=== PATIENT | female | born 1940 | race Caucasian/White ===

== ENCOUNTER 2020-06-02 12:48 | Outpatient (REF) | payer MEDICARE, SELFPAY ==
[2020-06-02 14:48] LABS: MANUAL DIFF FLAG NO
[2020-06-02 15:03] LABS: Basophils Percent Auto 0.3 % (0-2); Eosinophils Percent Auto 0.5 % (0-4); Hematocrit 38.2 % (37-47); Hemoglobin 12.8 g/dl (12.0-16.0); Imm Gran Abs Auto 0.01 X10*3/uL (0.00-0.03); Imm Gran Pct Auto 0.2 % (0.0-0.4); Lymphocytes Absolute Auto 1.4 X10*3/uL (1.2-4.9); Lymphocytes Percent Auto 23.8 % (20-40); Mean Corpuscular HGB Conc 33.5 g/dl (31.0-35.0); Mean Corpuscular Hemoglobin 32.6 pg (27.0-33.0); Mean Corpuscular Volume 97.2 fL (80-98); Mean Platelet Volume 11.3 fL (9.4-12.3); Monocytes Absolute Auto 0.5 X10*3/uL (0.1-1.2); Monocytes Percent Auto 8.2 % (2-11); Neutrophils Absolute Auto 3.9 X10*3/uL (2.0-8.3); Platelet Count 183 X10*3/uL (160-400); Red Blood Count 3.93 X10*6/uL (4.20-5.50); White Blood Count 5.8 X10*3/uL (4.8-10.8)
[2020-06-02 15:06] LABS: Estimated Average Glucose 126 mg/dL
[2020-06-02 15:08] LABS: Alanine Aminotransferase 21 U/L (0-31); Albumin Level 4.1 g/dL (3.5-5.0); Alkaline Phosphatase 62 U/L (39-117); Anion Gap 13 (12-20); Aspartate Amino Transferase 48 U/L (5-31); Bilirubin Total 0.6 mg/dL (0.0-1.0); Blood Urea Nitrogen 16 mg/dL (9-16); Calcium 9.3 mg/dL (8.4-10.2); Carbon Dioxide 27 mmol/L (22-29); Chloride 104 mmol/L (96-108); Cholesterol 196 mg/dL; Estimated Glomerular Filt Rate > 60; Glucose Fasting 118 mg/dL (60-99); HDL Cholesterol 56 mg/dL; LDL Cholesterol Calculated 128 mg/dl; Potassium 4.8 mmol/l (3.3-5.1); Sodium 139 mmol/L (135-145); Total Protein 6.8 g/dL (6.5-8.0); Triglycerides 60 mg/dL
[2020-06-02 15:34] LABS: Vitamin D 25-OH Total 25.9 ng/mL (>30)
== END 2020-06-02 12:49 | disposition home or self-care (01) ==
LOC: HO.LAB 12:48
PROVIDERS: PCP Internal Medicine; Visit Provider Internal Medicine
DX: I10 Essential (primary) hypertension (principal); R73.03 Prediabetes; E55.9 Vitamin D deficiency, unspecified; E78.00 Pure hypercholesterolemia, unspecified
CPT/HCPCS: 36415; 80053; 80061; 82306; 83036; 85025

== ENCOUNTER 2020-10-06 14:35 | Outpatient (REF) | payer MEDICARE, SELFPAY ==
[2020-10-06 16:01] LABS: Estimated Average Glucose 131 mg/dL; Hemoglobin A1c % 6.2 %
[2020-10-06 16:14] LABS: Anion Gap 12 (12-20); Blood Urea Nitrogen 17 mg/dL (9-16); Calcium 8.8 mg/dL (8.4-10.2); Carbon Dioxide 26 mmol/L (22-29); Chloride 104 mmol/L (96-108); Estimated Glomerular Filt Rate > 60; Glucose Random 102 mg/dL (60-115); Potassium 4.3 mmol/L (3.3-5.1); Sodium 138 mmol/L (135-145)
[2020-10-06 16:38] LABS: Vitamin D 25-OH Total 29.6 ng/mL (>30)
== END 2020-10-06 14:36 | disposition home or self-care (01) ==
LOC: HO.LAB 14:35
PROVIDERS: PCP Internal Medicine; Visit Provider Internal Medicine
DX: I10 Essential (primary) hypertension (principal); R73.03 Prediabetes; E55.9 Vitamin D deficiency, unspecified
CPT/HCPCS: 36415; 80048; 82306; 83036

== ENCOUNTER 2021-01-06 10:39 | Outpatient (REF) | payer MEDICARE, SELFPAY ==
--- NOTE | ~2021-01-06 | MM_ITS ---
EXAMINATION: MM SCREENING DIGITAL BREAST TOMOSYNTHESIS, BILATERAL CLINICAL INFORMATION: Screening. Asymptomatic. The lifetime risk of breast cancer based on the Tyrer-Cuzick Model is 2.7%. COMPARISON: Mammography: January 15, 2019 and studies dating back to April 13, 2009 TECHNIQUE: Digital breast tomosynthesis is performed in both the craniocaudal and mediolateral oblique views along with computer-aided detection (CAD). Synthesized 2D images are generated from the tomosynthesis. FINDINGS: There are scattered areas of fibroglandular density (ACR BI-RADS breast composition Category b). There are no significant masses, abnormal calcifications, or other abnormalities. MM/MM tomosynthesis screening BI IMPRESSION: There are no significant changes from prior study. ASSESSMENT: BI-RADS BI-RADS 1 RECOMMENDATION: Routine annual mammography screening. This patient's information was entered into a reminder system with a target due date for their next mammogram.
== END 2021-01-06 10:40 | disposition home or self-care (01) ==
LOC: HO.MAMMO 10:39
PROVIDERS: Visit Provider Internal Medicine
DX: Z12.31 Encounter for screening mammogram for malignant neoplasm of breast (principal)
CPT/HCPCS: 77063; 77067

== ENCOUNTER 2021-08-15 13:27 | Outpatient (REF) | payer MEDICARE, SELFPAY ==
--- NOTE | ~2021-08-15 | XR_ITS ---
EXAMINATION: XR HIP, RIGHT CLINICAL INFORMATION: Right hip pain. Rule out degenerative changes. COMPARISON: None TECHNIQUE: Two views of the right hip. FINDINGS: Visualized portion of the proximal right femur demonstrate no fracture. Femoral head is well-seated within the acetabulum. Severely decreased femoral acetabular joint space with some sclerotic and likely mild erosive changes of the femoral acetabular joint space. Prominent osteophyte off the superolateral acetabular margin in addition to another prominent osteophyte off the superolateral femoral head/neck junction. XR/XR hip RT min 2V IMPRESSION: Severe degenerative changes of the right hip.
--- NOTE | ~2021-08-15 | XR_ITS ---
EXAMINATION: XR LUMBOSACRAL SPINE CLINICAL INFORMATION: L/S, right hip pain, rule out DJD COMPARISON: None TECHNIQUE: Three views of the lumbosacral spine. FINDINGS: Vertebral body heights are maintained. There is hypertrophic facet arthropathy throughout the lumbar spine and loss of intervertebral disc space most notably at T11-T12,L2-L3, and L4-L5. There is grade 1 anterolisthesis of L4 on L5 and L5 on S1. There are partially visualized degenerative changes of the right hip. XR/XR lumbar spine 2-3V IMPRESSION: Multilevel degenerative change and facet arthropathy of the thoracolumbar spine with grade 1 anterolisthesis L4 on L5 and L5-S1. No acute fracture or malalignment.
== END 2021-08-15 13:28 | disposition home or self-care (01) ==
LOC: HO.XRAY 13:27
PROVIDERS: PCP Internal Medicine; Visit Provider Chiropractor
DX: M25.551 Pain in right hip (principal); M54.50 Low back pain, unspecified
CPT/HCPCS: 72100; 73502

== ENCOUNTER 2021-09-22 12:22 | Outpatient (REF) | payer MEDICARE, SELFPAY ==
[2021-09-22 12:40] LABS: MANUAL DIFF FLAG NO
[2021-09-22 13:04] LABS: Basophils Percent Auto 0.7 % (0-2); Eosinophils Absolute Auto 0.1 X10*3/uL (0.0-0.4); Eosinophils Percent Auto 2.4 % (0-4); Hematocrit 37.9 % (37.0-47.0); Hemoglobin 12.7 g/dl (12.0-16.0); Imm Gran Abs Auto 0.01 X10*3/uL (0.00-0.03); Imm Gran Pct Auto 0.2 % (0.0-0.4); Lymphocytes Absolute Auto 1.3 X10*3/uL (1.2-4.9); Lymphocytes Percent Auto 30.6 % (20-40); Mean Corpuscular HGB Conc 33.5 g/dl (31.0-35.0); Mean Corpuscular Volume 95.5 fL (80.0-98.0); Mean Platelet Volume 11.1 fL (9.4-12.3); Monocytes Absolute Auto 0.4 X10*3/uL (0.1-1.2); Monocytes Percent Auto 9.4 % (2-11); Neutrophils Absolute Auto 2.4 x10*3/uL (2.0-8.3); Neutrophils Percent Auto 56.7 % (45-73); Platelet Count 187 X10*3/uL (160-400); Red Blood Count 3.97 X10*6/uL (4.20-5.50); Red Cell Distribution Width 11.9 % (11.0-16.0); White Blood Count 4.3 X10*3/uL (4.8-10.8)
[2021-09-22 13:20] LABS: Estimated Average Glucose 134 mg/dL; Hemoglobin A1c % 6.3 %
[2021-09-22 13:31] LABS: Alanine Aminotransferase 22 U/L (0-31); Albumin Level 3.9 g/dL (3.5-5.0); Alkaline Phosphatase 69 U/L (39-117); Anion Gap 10 (12-20); Aspartate Amino Transferase 45 U/L (5-31); Bilirubin Total 0.5 mg/dL (0.0-1.0); Blood Urea Nitrogen 13 mg/dL (9-16); Calcium 9.3 mg/dL (8.4-10.2); Carbon Dioxide 28 mmol/L (22-29); Chloride 104 mmol/L (96-108); Cholesterol 187 mg/dL; Estimated Glomerular Filt Rate > 60; Glucose Fasting 126 mg/dL (60-99); HDL Cholesterol 51 mg/dL; Potassium 4.4 mmol/L (3.3-5.1); Sodium 138 mmol/L (135-145); Total Protein 6.7 g/dL (6.5-8.0)
[2021-09-22 13:32] LABS: Creatinine Urine 62.39 mg/dL
[2021-09-22 13:36] LABS: LDL Cholesterol Calculated 125 mg/dl; Triglycerides 56 mg/dL
[2021-09-22 14:09] LABS: Vitamin D 25-OH Total 27.4 ng/mL (>30)
== END 2021-09-22 12:23 | disposition home or self-care (01) ==
LOC: HO.LAB 12:22
PROVIDERS: PCP Internal Medicine; Visit Provider Internal Medicine
DX: E78.00 Pure hypercholesterolemia, unspecified (principal); I10 Essential (primary) hypertension; K21.9 Gastro-esophageal reflux disease without esophagitis; R73.03 Prediabetes; E55.9 Vitamin D deficiency, unspecified
CPT/HCPCS: 36415; 80053; 80061; 82043; 82306; 83036; 85025

== ENCOUNTER 2022-01-05 10:07 | Outpatient (REF) | payer MEDICARE, SELFPAY ==
[2022-01-05 11:09] LABS: Estimated Average Glucose 131 mg/dL; Hemoglobin A1c % 6.2 %
[2022-01-05 11:26] LABS: Anion Gap 11 (12-20); Blood Urea Nitrogen 14 mg/dL (9-16); Carbon Dioxide 26 mmol/L (22-29); Chloride 107 mmol/L (96-108); Estimated Glomerular Filt Rate > 60; Glucose Random 129 mg/dL (60-115); Sodium 139 mmol/L (135-145)
== END 2022-01-05 10:08 | disposition home or self-care (01) ==
LOC: HO.LAB 10:07
PROVIDERS: PCP Internal Medicine; Visit Provider Internal Medicine
DX: R73.03 Prediabetes (principal); I10 Essential (primary) hypertension
CPT/HCPCS: 36415; 80048; 83036

== ENCOUNTER 2022-07-21 14:49 | Outpatient (REF) | payer MEDICARE, SELFPAY ==
[2022-07-21 15:08] LABS: MANUAL DIFF FLAG NO
[2022-07-21 17:33] LABS: Basophils Percent Auto 0.7 % (0-2); Eosinophils Absolute Auto 0.2 X10*3/uL (0.0-0.4); Eosinophils Percent Auto 3.9 % (0-4); Hematocrit 34.8 % (37.0-47.0); Hemoglobin 11.9 g/dl (12.0-16.0); Imm Gran Abs Auto 0.01 X10*3/uL (0.00-0.03); Imm Gran Pct Auto 0.2 % (0.0-0.4); Lymphocytes Absolute Auto 1.6 X10*3/uL (1.2-4.9); Lymphocytes Percent Auto 34.9 % (20-40); Mean Corpuscular HGB Conc 34.2 g/dl (31.0-35.0); Mean Corpuscular Hemoglobin 31.6 pg (27.0-33.0); Mean Corpuscular Volume 92.6 fL (80.0-98.0); Mean Platelet Volume 11.6 fL (9.4-12.3); Monocytes Absolute Auto 0.5 X10*3/uL (0.1-1.2); Monocytes Percent Auto 10.6 % (2-11); Neutrophils Absolute Auto 2.3 x10*3/uL (2.0-8.3); Neutrophils Percent Auto 49.7 % (45-73); Platelet Count 201 X10*3/uL (160-400); Red Blood Count 3.76 X10*6/uL (4.20-5.50); Red Cell Distribution Width 12.9 % (11.0-16.0); White Blood Count 4.6 X10*3/uL (4.8-10.8)
[2022-07-21 17:46] LABS: Alanine Aminotransferase 17 U/L (0-31); Albumin Level 3.8 g/dL (3.5-5.0); Alkaline Phosphatase 78 U/L (39-117); Anion Gap 13 (12-20); Aspartate Amino Transferase 41 U/L (5-31); Bilirubin Total 0.6 mg/dL (0.0-1.0); Blood Urea Nitrogen 15 mg/dL (9-16); Calcium 8.8 mg/dL (8.4-10.2); Carbon Dioxide 24 mmol/L (22-29); Chloride 105 mmol/L (96-108); Cholesterol 186 mg/dL; Estimated Glomerular Filt Rate > 60; Glucose Fasting 101 mg/dL (60-99); HDL Cholesterol 51 mg/dL; LDL Cholesterol Calculated 123 mg/dl; Potassium 4.5 mmol/L (3.3-5.1); Sodium 137 mmol/L (135-145); Total Protein 6.4 g/dL (6.5-8.0); Triglycerides 63 mg/dL
== END 2022-07-21 14:50 | disposition home or self-care (01) ==
LOC: HO.LAB 14:49
PROVIDERS: PCP Internal Medicine; Visit Provider Internal Medicine
DX: I10 Essential (primary) hypertension (principal); E78.00 Pure hypercholesterolemia, unspecified; R73.03 Prediabetes
CPT/HCPCS: 36415; 80053; 80061; 85025

== ENCOUNTER 2022-11-01 14:27 | Outpatient (REF) | payer MEDICARE, SELFPAY ==
[2022-11-01 14:46] LABS: MANUAL DIFF FLAG NO
[2022-11-01 15:57] LABS: Appearance Urine Clear; Color Urine Yellow; Glucose Urine UA Negative (Negative); Leukocyte Esterase Urine Small (1+) (Negative); Nitrite Urine Negative (Negative); PH 5.5 (5.0-9.0); UMIC TRIGGER UA YES; Urine Blood Negative (Negative); Urine Ketones Negative (Negative); Urine Protein Negative (Neg-Trace)
[2022-11-01 16:02] LABS: Basophils Percent Auto 0.8 % (0-2); Eosinophils Absolute Auto 0.2 X10*3/uL (0.0-0.4); Eosinophils Percent Auto 3.8 % (0-4); Hematocrit 35.2 % (37.0-47.0); Imm Gran Abs Auto 0.01 X10*3/uL (0.00-0.03); Imm Gran Pct Auto 0.2 % (0.0-0.4); Lymphocytes Absolute Auto 1.7 X10*3/uL (1.2-4.9); Lymphocytes Percent Auto 32.1 % (20-40); Mean Corpuscular HGB Conc 34.1 g/dl (31.0-35.0); Mean Corpuscular Hemoglobin 31.6 pg (27.0-33.0); Mean Corpuscular Volume 92.6 fL (80.0-98.0); Mean Platelet Volume 11.2 fL (9.4-12.3); Monocytes Absolute Auto 0.5 X10*3/uL (0.1-1.2); Monocytes Percent Auto 9.8 % (2-11); Neutrophils Absolute Auto 2.8 x10*3/uL (2.0-8.3); Neutrophils Percent Auto 53.3 % (45-73); Platelet Count 173 X10*3/uL (160-400); Red Cell Distribution Width 12.8 % (11.0-16.0); White Blood Count 5.2 X10*3/uL (4.8-10.8)
[2022-11-01 16:13] LABS: Estimated Average Glucose 126 mg/dL
[2022-11-01 16:35] LABS: Bacteria Urine None Seen (None Seen); Hyaline Casts Urine 0-2 /LPF (0-2); RBC Urine 0-2 /HPF (0-2); Squamous Epithelial Cell Urine 0-2 /HPF (0-2); WBC Urine 0-5 /HPF (0-5)
[2022-11-01 16:38] LABS: Creatinine Urine 83.48 mg/dL; Microalbum/Creatinine Ratio Ur 7.1 ug/mg cr
[2022-11-01 16:45] LABS: Alanine Aminotransferase 21 U/L (0-31); Albumin Level 3.6 g/dL (3.5-5.0); Alkaline Phosphatase 77 U/L (39-117); Anion Gap 12 (12-20); Aspartate Amino Transferase 44 U/L (5-31); Bilirubin Total 0.6 mg/dL (0.0-1.0); Blood Urea Nitrogen 17 mg/dL (9-16); Calcium 8.9 mg/dL (8.4-10.2); Carbon Dioxide 24 mmol/L (22-29); Chloride 107 mmol/L (96-108); Cholesterol 180 mg/dL; Estimated Glomerular Filt Rate > 60; Glucose Fasting 99 mg/dL (60-99); HDL Cholesterol 54 mg/dL; LDL Cholesterol Calculated 117 mg/dl; Potassium 4.4 mmol/L (3.3-5.1); Sodium 139 mmol/L (135-145); Total Protein 6.2 g/dL (6.5-8.0); Triglycerides 45 mg/dL
== END 2022-11-01 14:28 | disposition home or self-care (01) ==
LOC: HO.LAB 14:27
PROVIDERS: PCP Internal Medicine; Visit Provider Internal Medicine
DX: Z00.00 Encounter for general adult medical examination without abnormal findings (principal); E55.9 Vitamin D deficiency, unspecified; R73.03 Prediabetes; I10 Essential (primary) hypertension; E78.00 Pure hypercholesterolemia, unspecified
CPT/HCPCS: 36415; 80053; 80061; 81001; 82043; 82306; 83036; 85025

== ENCOUNTER 2023-07-26 12:02 | Outpatient (REF) | payer MEDICARE, SELFPAY ==
[2023-07-26 12:39] LABS: MANUAL DIFF FLAG NO
[2023-07-26 14:05] LABS: Basophils Percent Auto 0.7 % (0-2); Eosinophils Absolute Auto 0.2 X10*3/uL (0.0-0.4); Eosinophils Percent Auto 3.9 % (0-4); Hematocrit 26.5 % (37.0-47.0); Hemoglobin 7.9 g/dl (12.0-16.0); Imm Gran Abs Auto 0.01 X10*3/uL (0.00-0.03); Imm Gran Pct Auto 0.2 % (0.0-0.4); Lymphocytes Absolute Auto 1.1 X10*3/uL (1.2-4.9); Lymphocytes Percent Auto 24.4 % (20-40); Mean Corpuscular HGB Conc 29.8 g/dl (31.0-35.0); Mean Corpuscular Hemoglobin 22.6 pg (27.0-33.0); Mean Corpuscular Volume 75.7 fL (80.0-98.0); Mean Platelet Volume 10.1 fL (9.4-12.3); Monocytes Absolute Auto 0.7 X10*3/uL (0.1-1.2); Monocytes Percent Auto 14.6 % (2-11); Neutrophils Absolute Auto 2.6 x10*3/uL (2.0-8.3); Neutrophils Percent Auto 56.2 % (45-73); Platelet Count 252 X10*3/uL (160-400); Red Cell Distribution Width 20.5 % (11.0-16.0); White Blood Count 4.6 X10*3/uL (4.8-10.8)
[2023-07-26 14:39] LABS: Alanine Aminotransferase 17 U/L (0-31); Albumin Level 3.7 g/dL (3.5-5.0); Alkaline Phosphatase 80 U/L (39-117); Anion Gap 10 (12-20); Aspartate Amino Transferase 50 U/L (5-31); Bilirubin Total 0.4 mg/dL (0.0-1.0); Blood Urea Nitrogen 18 mg/dL (9-16); Calcium 9.2 mg/dL (8.4-10.2); Carbon Dioxide 25 mmol/L (22-29); Chloride 108 mmol/L (96-108); Cholesterol 178 mg/dL (<200); Estimated Glomerular Filt Rate > 60; Glucose Random 118 mg/dL (60-115); HDL Cholesterol 60 mg/dL (>40); LDL Cholesterol Calculated 109 mg/dL (<100); Potassium 4.3 mmol/L (3.3-5.1); Sodium 139 mmol/L (135-145); Total Protein 6.8 g/dL (6.5-8.0); Triglycerides 47 mg/dL (<150)
[2023-07-26 14:57] LABS: Vitamin D 25-OH Total 30.3 ng/mL (>30)
== END 2023-07-26 12:03 | disposition home or self-care (01) ==
LOC: HO.LAB 12:02
PROVIDERS: PCP Internal Medicine; Visit Provider Internal Medicine
DX: I10 Essential (primary) hypertension (principal); E78.00 Pure hypercholesterolemia, unspecified; E55.9 Vitamin D deficiency, unspecified
CPT/HCPCS: 36415; 80053; 80061; 82306; 85025

== ENCOUNTER 2023-07-27 13:35 | Outpatient (REF) | payer MEDICARE, SELFPAY ==
[2023-07-27 13:47] LABS: MANUAL DIFF FLAG NO
[2023-07-27 13:54] LABS: Basophils Percent Auto 0.6 % (0-2); Eosinophils Absolute Auto 0.2 X10*3/uL (0.0-0.4); Eosinophils Percent Auto 3.4 % (0-4); Hematocrit 25.9 % (37.0-47.0); Hemoglobin 7.8 g/dl (12.0-16.0); Imm Gran Abs Auto 0.01 X10*3/uL (0.00-0.03); Imm Gran Pct Auto 0.2 % (0.0-0.4); Immature Retic Fraction 23.1 % (3.0-15.9); Lymphocytes Absolute Auto 1.2 X10*3/uL (1.2-4.9); Lymphocytes Percent Auto 21.9 % (20-40); Mean Corpuscular HGB Conc 30.1 g/dl (31.0-35.0); Mean Corpuscular Hemoglobin 23.1 pg (27.0-33.0); Mean Corpuscular Volume 76.6 fL (80.0-98.0); Monocytes Absolute Auto 0.8 X10*3/uL (0.1-1.2); Monocytes Percent Auto 14.4 % (2-11); Neutrophils Absolute Auto 3.2 x10*3/uL (2.0-8.3); Neutrophils Percent Auto 59.5 % (45-73); Platelet Count 255 X10*3/uL (160-400); Red Blood Count 3.38 X10*6/uL (4.20-5.50); Red Cell Distribution Width 20.1 % (11.0-16.0); Retic HGB Equivalent 22.6 pg (30.0-35.0); Reticulocyte Percent 1.4 % (0.5-1.8); Reticulocytes Absolute 0.048 X10*6/uL (0.026-0.095); White Blood Count 5.4 X10*3/uL (4.8-10.8)
[2023-07-27 14:25] LABS: Iron 15 mcg/dL (30-160); Percent Iron Saturation 5 % (15-50); Total Iron Binding Capacity 324 mcg/dL (228-428); Unsaturated Iron Binding 309 ug/dL
[2023-07-27 14:39] LABS: Ferritin 11 ng/mL (10-250)
== END 2023-07-27 13:36 | disposition home or self-care (01) ==
LOC: HO.LAB 13:35
PROVIDERS: PCP Internal Medicine; Visit Provider Internal Medicine
DX: D64.9 Anemia, unspecified (principal)
CPT/HCPCS: 36415; 82728; 83540; 85025; 85045

== ENCOUNTER 2023-10-19 15:15 | Outpatient (REF) | payer MEDICARE, SELFPAY ==
[2023-10-19 15:26] LABS: MANUAL DIFF FLAG NO
[2023-10-19 15:40] LABS: Basophils Percent Auto 0.5 % (0-2); Eosinophils Absolute Auto 0.3 X10*3/uL (0.0-0.4); Hematocrit 34.1 % (37.0-47.0); Hemoglobin 11.1 g/dl (12.0-16.0); Imm Gran Abs Auto 0.02 X10*3/uL (0.00-0.03); Imm Gran Pct Auto 0.3 % (0.0-0.4); Lymphocytes Absolute Auto 1.6 X10*3/uL (1.2-4.9); Lymphocytes Percent Auto 27.8 % (20-40); Mean Corpuscular HGB Conc 32.6 g/dl (31.0-35.0); Mean Corpuscular Hemoglobin 29.4 pg (27.0-33.0); Mean Corpuscular Volume 90.5 fL (80.0-98.0); Monocytes Absolute Auto 0.7 X10*3/uL (0.1-1.2); Monocytes Percent Auto 11.3 % (2-11); Neutrophils Absolute Auto 3.2 x10*3/uL (2.0-8.3); Neutrophils Percent Auto 55.1 % (45-73); Platelet Count 203 X10*3/uL (160-400); Red Blood Count 3.77 X10*6/uL (4.20-5.50); Red Cell Distribution Width 17.7 % (11.0-16.0); White Blood Count 5.8 X10*3/uL (4.8-10.8)
[2023-10-19 16:12] LABS: Anion Gap 7 (12-20); Blood Urea Nitrogen 17 mg/dL (9-16); Calcium 8.6 mg/dL (8.4-10.2); Carbon Dioxide 29 mmol/L (22-29); Chloride 108 mmol/L (96-108); Estimated Glomerular Filt Rate > 60; Glucose Random 90 mg/dL (60-115); Iron 38 mcg/dL (30-160); Percent Iron Saturation 14 % (15-50); Potassium 4.3 mmol/L (3.3-5.1); Sodium 140 mmol/L (135-145); Total Iron Binding Capacity 269 mcg/dL (228-428); Unsaturated Iron Binding 231 ug/dL
[2023-10-19 16:43] LABS: Vitamin B12 366 pg/mL (200-900)
== END 2023-10-19 15:16 | disposition home or self-care (01) ==
LOC: HO.LAB 15:15
PROVIDERS: PCP Internal Medicine; Visit Provider Internal Medicine
DX: D64.9 Anemia, unspecified (principal); I10 Essential (primary) hypertension
CPT/HCPCS: 36415; 80048; 82607; 83540; 85025

== ENCOUNTER 2024-03-20 14:13 | Outpatient (REF) | payer MEDICARE, SELFPAY ==
[2024-03-20 15:02] LABS: Basophils Absolute Auto 0.1 X10*3/uL (0.0-0.2); Basophils Percent Auto 0.7 % (0-2); Eosinophils Absolute Auto 0.3 X10*3/uL (0.0-0.4); Hematocrit 32.2 % (37.0-47.0); Hemoglobin 10.8 g/dl (12.0-16.0); Imm Gran Abs Auto 0.02 X10*3/uL (0.00-0.03); Imm Gran Pct Auto 0.3 % (0.0-0.4); Lymphocytes Absolute Auto 1.5 X10*3/uL (1.2-4.9); Lymphocytes Percent Auto 22.2 % (20-40); MANUAL DIFF FLAG NO; Mean Corpuscular HGB Conc 33.5 g/dl (31.0-35.0); Mean Corpuscular Hemoglobin 31.1 pg (27.0-33.0); Mean Corpuscular Volume 92.8 fL (80.0-98.0); Monocytes Absolute Auto 0.6 X10*3/uL (0.1-1.2); Monocytes Percent Auto 8.9 % (2-11); Neutrophils Absolute Auto 4.3 x10*3/uL (2.0-8.3); Neutrophils Percent Auto 63.9 % (45-73); Platelet Count 215 X10*3/uL (160-400); Red Blood Count 3.47 X10*6/uL (4.20-5.50); Red Cell Distribution Width 12.7 % (11.0-16.0); White Blood Count 6.8 X10*3/uL (4.8-10.8)
[2024-03-20 15:22] LABS: Anion Gap 10 (12-20); Blood Urea Nitrogen 15 mg/dL (9-16); Carbon Dioxide 25 mmol/L (22-29); Chloride 106 mmol/L (96-108); Estimated Glomerular Filt Rate > 60; Glucose Random 92 mg/dL (60-115); Iron 81 mcg/dL (30-160); Percent Iron Saturation 31 % (15-50); Potassium 4.1 mmol/L (3.3-5.1); Sodium 137 mmol/L (135-145); Total Iron Binding Capacity 259 mcg/dL (228-428); Unsaturated Iron Binding 178 ug/dL
== END 2024-03-20 14:14 | disposition home or self-care (01) ==
LOC: HO.LAB 14:13
PROVIDERS: PCP Internal Medicine; Visit Provider Internal Medicine
DX: D64.9 Anemia, unspecified (principal); I10 Essential (primary) hypertension
CPT/HCPCS: 36415; 80048; 83540; 85025

== ENCOUNTER 2024-07-09 09:44 | Outpatient (REF) | payer MEDICARE, SELFPAY ==
[2024-07-09 10:09] LABS: MANUAL DIFF FLAG NO
[2024-07-09 10:57] LABS: Basophils Percent Auto 0.5 % (0-2); Eosinophils Absolute Auto 0.3 X10*3/uL (0.0-0.4); Hematocrit 31.1 % (37.0-47.0); Hemoglobin 10.1 g/dl (12.0-16.0); Imm Gran Abs Auto 0.02 X10*3/uL (0.00-0.03); Imm Gran Pct Auto 0.3 % (0.0-0.4); Lymphocytes Absolute Auto 1.3 X10*3/uL (1.2-4.9); Lymphocytes Percent Auto 19.4 % (20-40); Mean Corpuscular HGB Conc 32.5 g/dl (31.0-35.0); Mean Corpuscular Hemoglobin 29.3 pg (27.0-33.0); Mean Corpuscular Volume 90.1 fL (80.0-98.0); Mean Platelet Volume 10.1 fL (9.4-12.3); Monocytes Absolute Auto 0.6 X10*3/uL (0.1-1.2); Monocytes Percent Auto 8.7 % (2-11); Neutrophils Absolute Auto 4.4 x10*3/uL (2.0-8.3); Neutrophils Percent Auto 67.1 % (45-73); Platelet Count 240 X10*3/uL (160-400); Red Blood Count 3.45 X10*6/uL (4.20-5.50); Red Cell Distribution Width 13.2 % (11.0-16.0); White Blood Count 6.6 X10*3/uL (4.8-10.8)
[2024-07-09 11:30] LABS: Alanine Aminotransferase 17 U/L (0-31); Albumin Level 3.5 g/dL (3.5-5.0); Alkaline Phosphatase 67 U/L (39-117); Anion Gap 13 (12-20); Aspartate Amino Transferase 53 U/L (5-31); Bilirubin Total 0.3 mg/dL (0.0-1.0); Blood Urea Nitrogen 17 mg/dL (9-16); Calcium 8.5 mg/dL (8.4-10.2); Carbon Dioxide 24 mmol/L (22-29); Chloride 107 mmol/L (96-108); Estimated Glomerular Filt Rate > 60; Glucose Random 123 mg/dL (60-115); Iron 24 mcg/dL (30-160); Percent Iron Saturation 10 % (15-50); Potassium 4.1 mmol/L (3.3-5.1); Sodium 140 mmol/L (135-145); Total Iron Binding Capacity 250 mcg/dL (228-428); Total Protein 6.4 g/dL (6.5-8.0); Unsaturated Iron Binding 226 ug/dL
== END 2024-07-09 09:45 | disposition home or self-care (01) ==
LOC: HO.LAB 09:44
PROVIDERS: PCP Internal Medicine; Visit Provider Internal Medicine
DX: I10 Essential (primary) hypertension (principal); D64.9 Anemia, unspecified
CPT/HCPCS: 36415; 80053; 83540; 85025

== ENCOUNTER 2025-01-16 10:11 | Outpatient (AMB) | payer MEDICARE, SELFPAY ==
--- NOTE | 2025-01-16 10:14 | MHC.PC.OV ---
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: No Accompanied by: Self / Same As Patient Allergies No Known Allergies Allergy (Mild, Verified 01/16/25 10:14) NKA Tobacco use date assessed: 01/16/25 Fall risk assessment: No Falls in past year Last assessed Fall Risk: 01/16/25 Dental Screening Dental Screen Date: 01/16/25 Did you have a dental visit in the last 12 months?: No Did you have a dental problem in the last 6 months where you did not have access to dental care?: No HPI HPI Comments History of Present Illness Details The patient is a 84 year old female with a past medical history of htnm hld, depression/anxiety, anxiety, GERD, prediabetes, colon polyps, OA s/p RTH presenting for follow up. Last seen for annual Nov CV: On lisinopril 5mg, atorvastatin 40mg daily. Blood pressure is well controlled. Denies chest pain, dyspnea. GI: Intermittent reflux. On pepcid 20mg daily. Having increased abdominal cramping, change in stool caliber. Has seen Dr Min MSK: Doing well Mammo: Colonoscopy 2019 ROS CONSTITUTIONAL: Denies weight loss, fever and chills. HEENT: Denies changes in vision and hearing. RESPIRATORY: Denies SOB and cough. CV: Denies palpitations and CP GI: Denies abdominal pain, nausea, vomiting and diarrhea. : Denies dysuria and urinary frequency. MSK: Denies new myalgia and joint pain. SKIN: Denies rash and pruritus. NEUROLOGICAL: Denies headache PSYCHIATRIC: Denies recent changes in mood. PHYSICAL EXAM: GENERAL: Alert and oriented x 3. NAD EYES: EOMI. Anicteric. HENT: Moist mucous membranes. No scleral icterus. No cervical lymphadenopathy. LUNGS: Clear to auscultation bilaterally. CARDIOVASCULAR: Regular rate and rhythm. No murmur. No JVD. ABDOMEN: Soft, non-tender +bs EXTREMITIES: No edema. Non-tender. SKIN: No rashes or lesions. Warm. NEUROLOGIC: No focal neurological deficits. CN II-XII grossly intact PSYCHIATRIC: Cooperative. Appropriate mood and affect [facility] Surgical History History of colonoscopy (~11/15/18) Family History (Updated 01/16/25 @ 10:22 by Danuta Schumacher MA) Mother No problems noted. Father No problems noted. Social History Housing: House Patient Tobacco Use Status: Never used Tobacco e-Cigarette/Vaping Use: Never Used service: No Current occupational status: retired Cognitive needs: No Hearing needs: No Vision needs: Yes (rx glasses) Questionnaire PHQ-9 Over the last 2 weeks, how often have you been bothered by any of the following problems? 1. Little interest or pleasure in doing things: not at all 2. Feeling down, depressed, or hopeless: not at all 3. Trouble falling or staying asleep, or sleeping too much: not at all 4. Feeling tired or having little energy: not at all 5. Poor appetite or overeating: not at all 6. Feeling bad about yourself - or that you are a failure or have let yourself or your family down: not at all 7. Trouble concentrating on things, such as reading the newspaper or watching television: not at all 8. Moving or speaking so slowly that other people could have noticed. Or the opposite - being so fidgety or restless that you have been moving around a lot more than usual: not at all 9. Thoughts that you would be better off or of hurting yourself in some way: not at all Total score: 0 Depression Screening Interpretation: Negative Depression Screening Done: Yes 61760 - PHQ-9 Billing: Yes Source: Developed by Drs. Bernard Carrion, Ivone Larios, Galen Alvarez and colleagues, with an educational germania from [employer]. Thrive Questionnaire Date Thrive assessed: 01/16/25 I am a: Patient Within the past 12 months, did the food you bought not last and you didn't have the money to get more?: Never true Within the past 12 months, did you worry whether your food would run out before you got money to buy more?: Never true Do you have trouble paying for medicines?: No Do you have trouble getting transportation to medical appointments?: No Do you have trouble paying your heating and electricity bill?: No Do you have trouble taking care of your child, family member or friend?: No Do you have trouble with day-to-day activities such as bathing, preparing meals, shopping, managing finances, etc.?: No Are you currently unemployed and looking for a job?: No Are you interested in more education?: No THRIVE Score: 0 AUDIT C Alcohol Use Questionnaire (AUDIT-C) 1. How often do you have a drink containing alcohol?: Monthly or less 2. How many drinks containing alcohol do you have on a typical day when you are drinking?: 1 or 2 3. How often do you have six or more drinks on one occasion?: Less than monthly Total Score: 2 LETI-7 AMB Questionnaire LETI-7 Date LETI - 7 assessed: 01/16/25 Feeling nervous, anxious, or on edge: 0 = Not at all Not being able to stop or control worryin = Not at all Worrying too much about different things: 0 = Not at all Trouble relaxin = Not at all Being so restless that it is hard to sit still: 0 = Not at all Becoming easily annoyed or irritable: 0 = Not at all Feeling afraid as if something awful might happen: 0 = Not at all Total LETI-7 score (0-4 normal; 5-9 mild; 10-14 moderate; 15-21 severe): 0 Source: Developed by Drs. Bernard Carrion, Ivone Larios, Galen Alvarez and colleagues, with an educational germania from [employer]. Physical exam (Primary Care) Vital Signs: Last Vital Signs Temp 97.4 F 01/16/25 10:17 Pulse 67 01/16/25 10:17 BP 122/70 01/16/25 10:17 Pulse Ox 99 01/16/25 10:17 Oxygen Delivery Method Room Air 01/16/25 10:17 BMI result Body Mass Index 26.5 Tobacco/Smoking Status: Tobacco use Status Tobacco use date assessed 01/16/25 01/16/25 10:16 Patient Tobacco Use Status Never used Tobacco 01/16/25 10:16 e-Cigarette/Vaping Use Never Used 01/16/25 10:16 PHQ-9: PHQ-9 Score PHQ-9: Total score 0 01/16/25 10:20 Depression Screening Interpretation: Negative Thrive Assessment: Date of Thrive Assessment Date Thrive assessed 01/16/25 01/16/25 10:16 Coding Level of Care Code New Pt Level 4 (22186) Complex EM visit Add On G2211 Diagnoses Encounter to establish care Z76.89 Gastroesophageal reflux disease, unspecified whether esophagitis present K21.9 Esophagitis presence: esophagitis presence not specified Hyperlipidemia, unspecified hyperlipidemia type E78.5 Hyperlipidemia type: unspecified Primary hypertension I10 Hypertension type: primary hypertension Change in stool R19.5 Change in bowel movement R19.8 Additional Codes PHQ-9 - 14056 - PHQ-9 Billing: Yes ([id number]) Assessment & Plan Assessment & Plan (1) Encounter to establish care: Code(s): Z76.89 - Persons encountering health services in other specified circumstances Category: Medical (2) GERD (gastroesophageal reflux disease): Code(s): K21.9 - Gastro-esophageal reflux disease without esophagitis Category: Medical Qualifiers: Esophagitis presence: esophagitis presence not specified Qualified Code(s): K21.9 - Gastro-esophageal reflux disease without esophagitis (3) Hyperlipidemia: Code(s): E78.5 - Hyperlipidemia, unspecified Category: Medical Qualifiers: Hyperlipidemia type: unspecified Qualified Code(s): E78.5 - Hyperlipidemia, unspecified (4) Hypertension: Code(s): I10 - Essential (primary) hypertension Category: Medical Qualifiers: Hypertension type: primary hypertension Qualified Code(s): I10 - Essential (primary) hypertension (5) Change in stool: Code(s): R19.5 - Other fecal abnormalities Category: Medical (6) Change in bowel movement: Code(s): R19.8 - Other specified symptoms and signs involving the digestive system and abdomen Category: Medical Plan 84 year old to establish care Past medical surgical social reviewed Labs ordered Changed in bowel reflux-referral GI Orders: Orders Pathologist Review - CBC Today D64.9 - Anemia, unspecified, E78.5 - Hyperlipidemia, unspecified, I10 - Essential (primary) hypertension, K21.9 - Gastro-esophageal reflux disease without esophagitis, R73.03 - Prediabetes, Z76.89 - Persons encountering health services in other specified circumstances LDL Cholesterol Direct Today D64.9 - Anemia, unspecified, E78.5 - Hyperlipidemia, unspecified, I10 - Essential (primary) hypertension, K21.9 - Gastro-esophageal reflux disease without esophagitis, R73.03 - Prediabetes, Z76.89 - Persons encountering health services in other specified circumstances IRON PROFILE Today D64.9 - Anemia, unspecified, E78.5 - Hyperlipidemia, unspecified, I10 - Essential (primary) hypertension, K21.9 - Gastro-esophageal reflux disease without esophagitis, R73.03 - Prediabetes, Z76.89 - Persons encountering health services in other specified circumstances Complete Blood Count Auto Diff Today D64.9 - Anemia, unspecified, E78.5 - Hyperlipidemia, unspecified, I10 - Essential (primary) hypertension, K21.9 - Gastro-esophageal reflux disease without esophagitis, R73.03 - Prediabetes, Z76.89 - Persons encountering health services in other specified circumstances Comprehensive Met. Panel Today D64.9 - Anemia, unspecified, E78.5 - Hyperlipidemia, unspecified, I10 - Essential (primary) hypertension, K21.9 - Gastro-esophageal reflux disease without esophagitis, R73.03 - Prediabetes, Z76.89 - Persons encountering health services in other specified circumstances Hemoglobin A1c Today D64.9 - Anemia, unspecified, E78.5 - Hyperlipidemia, unspecified, I10 - Essential (primary) hypertension, K21.9 - Gastro-esophageal reflux disease without esophagitis, R73.03 - Prediabetes, Z76.89 - Persons encountering health services in other specified circumstances Vitamin B12 and Folate Today D64.9 - Anemia, unspecified, E78.5 - Hyperlipidemia, unspecified, I10 - Essential (primary) hypertension, K21.9 - Gastro-esophageal reflux disease without esophagitis, R73.03 - Prediabetes, Z76.89 - Persons encountering health services in other specified circumstances Referrals Gastroenterology Referral K21.9 - Gastro-esophageal reflux disease without esophagitis, R19.5 - Other fecal abnormalities, R19.8 - Other specified symptoms and signs involving the digestive system and abdomen
[2025-01-16 10:17] VITALS: BP 122/70; PULSE 67; TEMP 36.3; O2SAT 99; BMI 26.5
--- OUTSIDE RECORDS SUMMARY | 2025-01-16 10:58 | XMS_ITS | Patient Health Record ---
Author Organization [facility] [place] Address [address] [place] [address] Care Team Providers Care School Resource Officer Name Role Phone Festus Phillips MD Primary Care Provider Esme Enriquez Unavailable [phone] Allergies No Known Allergies Reason For Referral No Information Medications Medication SIG (Take, Route, Frequency, Duration) Notes Start Date End Date Status Latanoprost 0.005 % 1 drop into affected eye in the evening Ophthalmic Once a day Active Lisinopril 5 MG 1 tablet Orally Once a day Active FLUoxetine HCl 10 MG 1 capsule Orally Once a day Active Vitamin D 1000 UNIT 1 capsule Orally Once a day Active Famotidine 20 MG Oral for 30 A ctive Ciclopirox Olamine 0.77 % 1 application Externally Twice a day for 30 days Active Iron Active Atorvastatin Calcium 40 MG 1 tablet Orally Once a day Active Aspirin 325 MG 1 tablet Orally Once a day Active CeleBREX 200 MG 1 capsule with food Orally Once a day until hip replacement in 04/04 Active Immunizations Vaccine Route Administration Date Status Comme nts COVID-19 Pfizer BioNTech Vaccine Unknown 05/23/2021 Administered 1st Dose: 10/11/2020 2nd Dose: 11/01/2020 Social History Tobacco Use: Social History Observation Description Date Details (start date - stop date) Never Smoker NA - NA Tobacco Use/Smoking Question Answer Notes Are you a: nonsmoker Additional Findings: Tobacco Non-User Current no n-smoker Alcohol Screen Question Answer Notes Did you have a drink contain ing alcohol in the past year? Yes How often did you have a dri nk containing alcohol in the past year? Monthly or less (1 point) How often did you have 6 or more drinks on one occasion in the past year? Monthly (2 points) Points 3 Interpretation Positive Tobacco use other than smoking: Question Answer Notes Are you an other tobacco user? No Problems Problem Type SNOMED Code ICD Code Onset Dates Problem Status W/U Status Risk Notes Problem [id number] Hallux valgus (acquired), left foot (M20.12) Active confirmed Problem Acquired hammer toe of left foot ([id number]) Other hammer toe(s) (acquired), left foot (M20.42) Active confirmed Problem [id number] Hallux valgus (acquired), left foot (M20.12) Active confirmed Vital Signs Blood pressure diastolic 60 mm Hg 01/18/2024 Height 5 ft 2 in in 01/18/2024 Blood pressure systolic 110 mm Hg 01/18/2024 Weight 149 lbs 01/18/2024 BMI 27.25 kg/m2 01/18/2024 Encounters Encounter Location Date Provider Diagnosis [facility] [place] [address] [place] [address] 01/18/2024 Esme Rebolledo Tinea unguium B35.1 ; Pain in left toe(s) M79.675 and Pain in right toe(s) M79.674 Assessments Encounter Date Diagnosis (ICD Code) Assessment Notes Treatment Notes Treatment Clinical Notes Section Notes 01/18/2024 Tinea unguium (ICD-10 - B35.1) 01/18/2024 Pain in left toe(s) (ICD-10 - M79.675) 01/18/2024 Pain in right toe(s) (ICD-10 - M79.674) Plan Of Treatment Pending Test Test Name Order Date X ray : Foot, left 3V 04/10/2018 [id number] NAIL, 6 OR MORE 06/25/2018 [id number] NAIL, 6 OR MORE 04/10/2018 Insurance Providers Payer Name Payer Address Payer Phone Subscriber Number Group Number Insured Name Patient Relationship to Insured Coverage Start Date Coverage End Date [facility] 65 Medicare Preferred [address] [place] [address] [id number] Kim Dhaliwal Self - patient is the insured Medical (General) History Medical History History ICD Code Anxiety Cholesterol High blood pressure Sciatica Measles Mumps Chicken pox DVT, thrombophlebitis Surgical History Surgery Date(Month/Year) right hip replacement 03/22/2023 Hospitalization History Reason Date(Month/Year) [facility] - right hip replacement 03/22/2023
== END 2025-01-16 10:34 | disposition home or self-care (01) ==
LOC: HO.HMCHD 10:11
PROVIDERS: PCP Internal Medicine; Visit Provider Internal Medicine
DX: Z76.89 Persons encountering health services in other specified circumstances (principal); K21.9 Gastro-esophageal reflux disease without esophagitis; E78.5 Hyperlipidemia, unspecified; I10 Essential (primary) hypertension; R19.5 Other fecal abnormalities; R19.8 Other specified symptoms and signs involving the digestive system and abdomen

== ENCOUNTER → 2025-01-16 10:11 | Outpatient (BNVA) | payer MEDICARE, SELFPAY | PROVIDERS: PCP Internal Medicine; Visit Provider Internal Medicine | DX: Z76.89 Persons encountering health services in other specified circumstances (principal); K21.9 Gastro-esophageal reflux disease without esophagitis; E78.5 Hyperlipidemia, unspecified; I10 Essential (primary) hypertension; R19.5 Other fecal abnormalities; R19.8 Other specified symptoms and signs involving the digestive system and abdomen | CPT/HCPCS: 96127; 99202 ==

== ENCOUNTER 2025-01-16 10:44 | Outpatient (REF) | payer MEDICARE, SELFPAY ==
[2025-01-16 13:28] LABS: MANUAL DIFF FLAG NO
[2025-01-16 13:41] LABS: Basophils Percent Auto 0.5 % (0-2); Eosinophils Absolute Auto 0.2 X10*3/uL (0.0-0.4); Hematocrit 28.9 % (37.0-47.0); Imm Gran Abs Auto 0.02 X10*3/uL (0.00-0.03); Imm Gran Pct Auto 0.3 % (0.0-0.4); Lymphocytes Absolute Auto 1.2 X10*3/uL (1.2-4.9); Lymphocytes Percent Auto 18.9 % (20-40); Mean Corpuscular HGB Conc 31.1 g/dl (31.0-35.0); Mean Corpuscular Hemoglobin 27.6 pg (27.0-33.0); Mean Corpuscular Volume 88.7 fL (80.0-98.0); Mean Platelet Volume 10.3 fL (9.4-12.3); Monocytes Absolute Auto 0.7 X10*3/uL (0.1-1.2); Monocytes Percent Auto 10.8 % (2-11); Neutrophils Absolute Auto 4.3 x10*3/uL (2.0-8.3); Neutrophils Percent Auto 66.5 % (45-73); Platelet Count 294 X10*3/uL (160-400); Red Blood Count 3.26 X10*6/uL (4.20-5.50); Red Cell Distribution Width 14.5 % (11.0-16.0); White Blood Count 6.4 X10*3/uL (4.8-10.8)
[2025-01-16 14:01] LABS: Estimated Average Glucose 114 mg/dL; Hemoglobin A1c % 5.6 % (<6.0)
[2025-01-16 14:17] LABS: Alanine Aminotransferase 17 U/L (0-31); Albumin Level 3.3 g/dL (3.5-5.0); Alkaline Phosphatase 61 U/L (39-117); Anion Gap 9 (12-20); Aspartate Amino Transferase 47 U/L (5-31); Bilirubin Total 0.2 mg/dL (0.0-1.0); Blood Urea Nitrogen 16 mg/dL (9-16); Calcium 8.5 mg/dL (8.4-10.2); Carbon Dioxide 26 mmol/L (22-29); Chloride 109 mmol/L (96-108); Estimated Glomerular Filt Rate > 60; Glucose Random 141 mg/dL (60-115); Iron 78 mcg/dL (30-160); Percent Iron Saturation 31 % (15-50); Potassium 3.9 mmol/L (3.3-5.1); Sodium 140 mmol/L (135-145); Total Iron Binding Capacity 249 mcg/dL (228-428); Unsaturated Iron Binding 171 ug/dL
[2025-01-16 14:45] LABS: Folate 10.9 ng/mL (> or = 4.0); Vitamin B12 357 pg/mL (200-900)
[2025-01-17 08:23] LABS: LDL Cholesterol Direct 102 mg/dL (<100)
== END 2025-01-16 10:45 | disposition home or self-care (01) ==
LOC: HO.10HDL 10:44
PROVIDERS: Visit Provider Internal Medicine
DX: Z76.89 Persons encountering health services in other specified circumstances (principal); K21.9 Gastro-esophageal reflux disease without esophagitis; E78.5 Hyperlipidemia, unspecified; I10 Essential (primary) hypertension; R19.5 Other fecal abnormalities; R19.8 Other specified symptoms and signs involving the digestive system and abdomen; D64.9 Anemia, unspecified; R73.03 Prediabetes
CPT/HCPCS: 80053; 82607; 82746; 83036; 83540; 83721; 85025; 96127; 99202

== ENCOUNTER 2025-04-16 14:32 | Outpatient (AMB) | payer MEDICARE, SELFPAY ==
--- OUTSIDE RECORDS SUMMARY | 2024-04-04 10:00 | XMS_ITS ---
Author Organization [facility] Address [address] [place] [id number] Care Team Providers Care Electrical Sign Wirer Helper Name Role Phone Alan YOUNG, Festus Primary Care Provider Unavaila Esme Dennison Unavailable [phone] Pimentel Encounters Encounter Location Date Provider Diagnosis [address] [address] 04/04/2024 Esme Rebolledo Plan Of Treatment No Information Progress Notes * Kim BULLARD HDOB:03/1940 (85 yo F)Acc No.[id number]:04/04/2024 Progress Note Patient: Kim FREGOSO Provider: Gi Rebolledo DPM :1940 A ge:84 Y S ex:Female Date:04/04/2024 Address:[address] [place], [place] [id number] Pcp:Festus Phillips MD Subjective: * Chief Complaints: * [address] Pimentel. * Medical History: Objective: * Vitals: Assessment: Plan: * Treatment: * Images: * The named appointment provid er may or may not be the originator of this progress note, and it is not deemed complete until electronically signed by the appointment provider. Sign off status: Pending * Provider: Gi Rebolledo DPM Date: 04/04/2024 Generated for Printi ng/Faxing/eTransmitting on: 04/16/2025 03:49 PM EDT
--- NOTE | 2025-04-16 14:29 | A.OFFPC_ITS ---
Vital Signs 04/16/25 14:31 Height 5 ft 2 in Weight 140 lb BMI 25.6 BP 120/68 Blood Pressure Location Lt brachial Position Sitting Respiration 16 Pulse 65 Pulse Source Pulse Oximeter Temp 98.1 F Temp Source Temporal Artery Scan Pulse Oximetry (%) 99 Oxygen Delivery Method Room Air Intake Visit Reasons: Routine / Dr Phillips Vp [employer] Required: No Allergies No Known Allergies Allergy (Mild, Verified 04/16/25 14:29) NKA Tobacco use date assessed: 01/16/25 Fall risk assessment: No Falls in past year Last assessed Fall Risk: 04/16/25 Dental Screening Dental Screen Date: 01/16/25 HPI HPI Comments History of Present Illness Details The patient is an 85-year-old female presenting with concerns of altered bowel habits and weight loss. Over the last year, she reported that her bowel movements have changed significantly. Historically, her bowel habits consisted of a bowel movement once every three days. However, she now experiences increased frequency, sometimes having three to four bowel movements a day. She describes her stool as narrower and more chunky, with a looser consistency, often feeling like an explosion . She is not experiencing diarrhea or constipation. The patient also notes unintentional weight loss. 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 Recently, her weight has dropped gradually to approximately 145 pounds over time. She attributes part of this change to the cessation of night-time eating but is concerned about the ongoing changes and their potential relation to the altered bowel habits. In the past year, she experienced occasional nausea and vomiting, which occurred about four times towards the end of last year and twice earlier this year. She did not experience episodes of nausea or vomiting since then. Additionally, she has noted the presence of skin lesions, though she has not been under dermatological care for these lesions. She is unaware of any changes in size or color. Moreover, a slight swelling has been observed in her right leg, though she denies difficulty with breathing or shortness of breath upon exertion. Medical History: - Hyperlipidemia - Hypertension - Iron Deficiency Anemia Medications: - Atorvastatin for hyperlipidemia - Lisinopril 5 mg for hypertension - Iron supplements for anemia - Hyperlipidemia management with atorvas tatin - Monitoring of blood pressure with ron nopril - The patient is taking iron supplements for low hemoglobin - Blood work from January indicated normal results except slightly elevated cholesterol levels Social: - Former occupation involved night clerk auditor s, consuming three meals a day - Very mobile and capable of moderate ph ysical activity - Significant dietary change with the ce ssation of night-time meal consumption has contributed to weight stabilization [facility] Surgical History History of colonoscopy (~11/15/18) Family History (Updated 01/16/25 @ 10:22 by Danuta Schumacher MA) Mother No problems noted. Father No problems noted. Social History Housing: House Patient Tobacco Use Status: Never used Tobacco e-Cigarette/Vaping Use: Never Used service: No Current occupational status: retired Cognitive needs: No Hearing needs: No Vision needs: Yes (rx glasses) Questionnaire Thrive Questionnaire Date Thrive assessed: 01/16/25 AUDIT C Alcohol Use Questionnaire (AUDIT-C) 1. How often do you have a drink containing alcohol?: Monthly or less 2. How many drinks containing alcohol do you have on a typical day when you are drinking?: 1 or 2 3. How often do you have six or more drinks on one occasion?: Never Total Score: 1 LETI-7 AMB Questionnaire LETI-7 Date LTEI - 7 assessed: 01/16/25 Source: Developed by Drs. Bernard Carrion, Ivone Larios, Galen Alvarez and colleagues, with an educational germania from [employer]. Review of Systems Const Details: - Gastrointestinal: Reports altered bowel habits with narrower, chunky, and loose stools; increased frequency of bowel movements - General: Reports unintentional weight loss - Cardiovascular: Denies chest pain - Dermatological: Reports skin lesions - Respiratory: Denies shortness of breath - Neurological: Reports past episodes of nausea and vomiting - Musculoskeletal: Denies pain; reports swelling in the right leg All systems reviewed & are unremarkable except as noted in HPI and below Physical exam (Primary Care) Tobacco/Smoking Status: Tobacco use Status Tobacco use date assessed 01/16/25 01/16/25 10:16 Patient Tobacco Use Status Never used Tobacco 01/16/25 10:16 e-Cigarette/Vaping Use Never Used 01/16/25 10:16 Thrive Assessment: Date of Thrive Assessment Date Thrive assessed 01/16/25 01/16/25 10:16 Const Other: General: +Alert and oriented, Well nourished, No acute distress. Eye: Pupils are equal, round and reactive to light, Intact accommodation, Extraocular movements are intact, Normal conjunctiva, Vision unchanged. HENT: Normocephalic, Atraumatic, Tympanic membranes are clear, Normal hearing, Oral mucosa is moist, No pharyngeal erythema, Ear canals patent. Respiratory: Lungs CTA bilaterally, No wheeze, Respirations are non-labored. Cardiovascular: Regular rate, Regular rhythm, S1 auscultated, S2 auscultated, No murmur, Good pulses equal in all extremities, Normal peripheral perfusion, Slight swelling in the right leg. Gastrointestinal: Soft, Non-tender, Non-distended, Normal bowel sounds, No organomegaly. Musculoskeletal: Normal range of motion, Normal strength, No tenderness, No swelling, No deformity, Normal gait. Integumentary: Warm, Dry, Jarrell, Intact, Some stable skin lesions. Neurologic: Alert, Oriented, Normal sensory, Normal motor function, No focal defects, Cranial Nerves II-XII are grossly intact, Normal deep tendon reflexes. Psychiatric: Cooperative, Appropriate mood & affect, Normal judgment. Coding Level of Care Code Est Pt Level 4 (79874) Complex EM visit Add On G2211 Diagnoses Primary hypertension I10 Hypertension type: primary hypertension Hyperlipidemia, unspecified hyperlipidemia type E78.5 Hyperlipidemia type: unspecified Microcytic anemia D50.9 Change in bowel movement R19.8 Assessment & Plan Assessment & Plan (1) Hypertension: Code(s): I10 - Essential (primary) hypertension Category: Medical Qualifiers: Hypertension type: primary hypertension Qualified Code(s): I10 - Essential (primary) hypertension Plan: - Blood pressure under control with lisinopril 5 mg - Continue current medication regimen (2) Hyperlipidemia: Comment: - Management with atorvastatin 4D to continue - Monitoring cholesterol levels over time Code(s): E78.5 - Hyperlipidemia, unspecified Category: Medical Qualifiers: Hyperlipidemia type: unspecified Qualified Code(s): E78.5 - Hyperlipidemia, unspecified (3) Microcytic anemia: Code(s): D50.9 - Iron deficiency anemia, unspecified Plan: Persistently anemia with an Hb of 11, and had MCV's as low as the high 70s. Will obtain an iron panel, peripeheral smear and b12 and folate at next visit. Could also be an underlying thalasemia (4) Change in bowel movement: Comment: - Discussed potential need for diagnostic test such as colonoscopy to identify the cause of altered bowel habits, weight loss and possible iron deficiency anemia Code(s): R19.8 - Other specified symptoms and signs involving the digestive system and abdomen Category: Medical Plan: 5. Skin Lesions - Monitoring for any changes in size, shape, or color - Referral to dermatology as needed for any changes 6. Peripheral Edema - Advised elevation of legs - Continued monitoring for any developments Plan During the consultation, we discussed the patient's recent concern of altered bowel habits and unintentional weight loss. I explained the possible need for further diagnostics such as a colonoscopy to evaluate her gastrointestinal system and rule out any underlying conditions. We reviewed her current medications, including atorvastatin for hyperlipidemia, and adjusted her management plan to maintain her current regimen given its effectiveness. We went over the signs to watch in her skin lesions and the importance of dermatological review if they change. I outlined the necessity of keeping her legs elevated to manage peripheral edema and reassured her about the resolution of past symptoms like nausea and vomiting, emphasizing the importance of follow-up care to address any recurrence. Patient Instructions: - Monitor bowel habits and note any changes - Attend the upcoming appointment with Dr. Min for further evaluation - Continue current medications as prescribed - Elevate legs to help with swelling - Watch for any changes in skin lesions and report if observed - Follow up as necessary upon receiving guidance from Dr. Min
[2025-04-16 14:31] VITALS: BP 120/68; PULSE 65; RESP 16; TEMP 36.7; O2SAT 99; BMI 25.6
--- OUTSIDE RECORDS SUMMARY | 2025-04-16 15:50 | XMS_ITS | Patient Health Record ---
Author [facility] [place] Address [address] [place] [address] Care Team Providers Care Script Developer Name Role Phone Festus Phillips MD Primary Care Provider Esme Enriquez Unavailable [phone] Allergies No Known Allergies Reason For Referral [...] Once a day Active Famotidine 20 MG Oral; Duration: 30 Active Ciclopirox Olamine 0.77 % 1 application Externally Twice a day; Duration: 30 days Active Iron Active Atorvastatin Calcium [...] Problem Status W/U Status Risk Notes Problem Acquired hallux valgus (38407115) Hallux valgus (acquired), left foot (M20.12) Active confirmed Problem Acquired hammer toe of left foot (4047926712678 103) Other hammer toe(s) (acquired), left foot (M20.42) Active confirmed Problem Acquired hallux valgus (73878611) Hallux valgus (acquired), left foot (M20.12) Active confirmed Plan Of Treatment Pending Test Test Name Order Date X ray : Foot, left 3V 04/10/2018 [id number] NAIL, 6 OR MORE 06/25/2018 [id number] NAIL, 6 OR MORE 04/10/2018 Insurance Providers Payer Name Payer Address Payer Phone Subscriber Number Group Number Insured Name Patient Relationship to Insured Coverage Start Date Coverage End Date BlueCare 65 Medicare Preferred [address] [place] [address] [id number] Kim Dhaliwal Self - patient is the insured Medical (General) History Medical History History ICD Code Anxiety Cholesterol High blood pressure Sciatica Measles Mumps Chicken pox DVT, thrombophlebitis Surgical History Surgery Date(Month/Year) right hip replacement 03/22/2023 Hospitalization History Reason Date(Month/Year) [facility] - right hip replacement 03/22/2023
--- OUTSIDE RECORDS SUMMARY | 2025-04-16 15:50 | XMS_ITS | Patient Health Record ---
Author Organization [facility] Address [address] [place] [address] Care Team Providers Care Research Lab Assistant Name Role Phone Manju Arrieta M.D. Primary Care Provider Unavail indy Min Jr, Carlos Unavailable Reason For Referral No Information Medications Medication SIG (Take, Route, Frequency, Duration) Notes Start Date End Date Status Lisinopril 5 MG 1 tablet Orally Once a day Active Atorvastatin Calcium 40 MG 1 tablet Oral ly Once a day for 30 day(s) Active FLUoxetine HCl 10 MG 1 tablet Orally Onc e a day Active Aspirin 325 MG 1 tablet Orally Once a day for 30 day(s) Active Colyte with Flavor Packs 240 GM As directed Orally Over the specified time. for 1 day(s) 08/15/2018 Active Immunizations Vaccine Route Administration Date Status Comme nts Influenza Unknown 08/15/2018 Refused Problems Problem Type SNOMED Code ICD Code Onset Dates Problem Status W/U Status Risk Notes Problem Screening for malignant neoplasm of colon (803146060) Special screening for malignant neoplasms, colon (V76.51) Active confirmed Problem Long-term current use of aspirin (984829062459347) Aspirin long-term use (V58.66) Active confirmed Problem 688984454 Colon cancer screening (Z12.11) Active confirmed Problem 81075124 Encounter for other preprocedural examination (Z01.818) Active confirmed Problem 672640797225071 senior care (current) use of aspirin (Z79.82) Active confirmed Plan Of Treatment Future Test Test Name Order Date COLONOSCOPY 08/15/2018 Next Appt Details Provider Name:Carlos waddell Jr, 04/27/2025 01:15:00 PM, [address], [address], [place], [address], Insurance Providers Payer Name Payer Address Payer Phone Subscriber Number Group Number Insured Name Patient Relationship to Insured Coverage Start Date Coverage End Date [facility] [address] [place], [place] [id number] [phone] [id number] JAG ANDREWS Self - patient is the insured Medical (General) History Medical History History ICD Code colonoscopy 03-12-2002 colon polyps hx of deep venous thrombosis elevated cholesterol hypertension Surgical History Surgery Date(Month/Year) tonsillectomy D&C eye lid repair
== END 2025-04-16 15:32 | disposition home or self-care (01) ==
PROVIDERS: PCP Student in an Organized Health Care Education/Training Program; Visit Provider Student in an Organized Health Care Education/Training Program
DX: I10 Essential (primary) hypertension (principal); E78.5 Hyperlipidemia, unspecified; D50.9 Iron deficiency anemia, unspecified; R19.8 Other specified symptoms and signs involving the digestive system and abdomen

== ENCOUNTER → 2025-04-16 14:32 | Outpatient (BNVA) | payer MEDICARE, SELFPAY | PROVIDERS: PCP Internal Medicine; Visit Provider Student in an Organized Health Care Education/Training Program | DX: I10 Essential (primary) hypertension (principal); E78.5 Hyperlipidemia, unspecified; D50.9 Iron deficiency anemia, unspecified; R19.8 Other specified symptoms and signs involving the digestive system and abdomen; L98.9 Disorder of the skin and subcutaneous tissue, unspecified; R60.9 Edema, unspecified; Z79.899 Other long term (current) drug therapy | CPT/HCPCS: 99212 ==

== ENCOUNTER 2025-04-30 13:35 | Outpatient (REF) | payer MEDICARE, SELFPAY ==
[2025-05-04 13:52] LABS: OBS Date 1 09/16/25; OBS Date 2 09/17/25; OBS Date 3 09/19/25; OBS Int Ctl Valid YES; OBS1 POSITIVE (NEGATIVE); OBS2 POSITIVE (NEGATIVE); OBS3 POSITIVE (NEGATIVE)
[2025-05-04 13:53] LABS: OBS Lot 50142 3L
== END 2025-04-30 13:36 | disposition home or self-care (01) ==
LOC: HO.LNP 13:35
PROVIDERS: Visit Provider Internal Medicine Gastroenterology
DX: D64.9 Anemia, unspecified (principal)
CPT/HCPCS: 82270

== ENCOUNTER 2025-05-15 10:53 | Day surgery (SDC) | payer MEDICARE, SELFPAY ==
--- OUTSIDE RECORDS SUMMARY | 2024-04-04 10:00 | XMS_ITS ---
Author Organization [facility] Address [address] [place] [id number] Care Team Providers Care Memorial Counselor Name Role Phone Alan YOUNG, Festus Primary Care Provider Unavaila Esme Dennison Unavailable [phone] Pimentel Encounters Encounter Location Date Provider Diagnosis [address] [address] 04/04/2024 Esme Rebolledo Plan Of Treatment No Information Progress Notes * Kim BULLARD HDOB:03/1940 (85 yo F)Acc No.[id number]:04/04/2024 Progress Note Patient: Kim FREGOSO Provider: Gi Rebolledo DPM :1940 A ge:84 Y S ex:Female Date:04/04/2024 Address:[address] [place], [place] [id number] Pcp:Festus Phillips MD Subjective: * Chief Complaints: [...] Date: 04/04/2024 Generated for Printi ng/Faxing/eTransmitting on: 05/07/2025 06:19 PM EDT
--- OUTSIDE RECORDS SUMMARY | 2025-04-27 09:15 | XMS_ITS ---
Author Organization [facility] Address [address] [place] [address] Care Team Providers Care Office Professionals Name Role Phone LORRAINE BONE M.D. Primary Care Provider Carlos Kelly Jr Allergies No Known Allergies REASON FOR VISIT Patient presents today for GERD, OTHER FECAL ABNORMALITIES, Medications Medication SIG (Take, Route, Frequency, Duration) Notes Start Date End Date Status FLUoxetine HCl 10 MG 1 tablet Orally Onc e a day Active Vitamin D-3 25 MCG (1000 UT) 1 capsule Orally Once a day Active Atorvastatin Calcium 40 MG 1 tablet Oral ly Once a day for 30 day(s) Active Aspirin 81 MG 1 capsule Orally Onc e a day for 30 days Active Lisinopril 5 MG 1 tablet Orally Once a day Active Latanoprost 0.005 % 1 drop into affected eye in the evening Ophthalmic Once a day Active Famotidine 20 MG 1 tablet at bedtime as needed Orally Once a day Active Iron 325 (65 Fe) MG 1 tablet Orally Thre e times a Week Active Problems Problem Type SNOMED Code ICD Code Onset Dates Problem Status W/U Status Risk Notes Problem Anemia (890640595) Anemia (D64.9) Active confirmed Vital Signs Temperature 97.1 degrees Fahrenheit 04/27/20 25 Blood pressure systolic 001 mm Hg 04/27/20 25 Blood pressure diastolic 01 mm Hg 025 Height 63 in 04/27/2025 Weight 146.8 lbs 04/27/2025 BMI 26 kg/m2 04/27/2025 Encounters Encounter Location Date Provider Diagnosis [facility] [address] [place] [address] 04/27/2025 Carlos Min Jr Anemia D64.9 Assessments Encounter Date Diagnosis (ICD Code) Assessment Notes Treatment Notes Treatment Clinical Notes Section Notes 04/27/2025 Anemia (ICD-10 - D64.9) Plan Of Treatment Pending Test Test Name Order Date OCCULT BLOOD STOOL X3 (OBS) 04/27/2025 Next Appt Details Provider Name:Carlos waddell Jr, 05/15/2025 12:40:00 PM, [address] [place] [address] , [place], [place], [id number], Provider Name:Carlos waddell Jr, 04/29/2026 01:15:00 PM, [address] [place] [address], [address], [place], [address], Progress Notes * JAG BULLARDDOB:[birth year] (85 yo F)Acc No.[id number]:04/27/2025 Progress Notes Patient: JAG FREGOSO Provider: Jose Min MD :1940 A ge:85 Y S ex:Female Date:04/27/2025 Address:[address] [place], [place] [id number] Pcp:LORRAINE BONE M.D. Subjective: * Chief Complaints: * 1 . Patient presents today for GERD, OTHER FECAL ABNORMALITIES,. * Medical History: C olonoscopy 03-12-2002, Colon polyps, Hx of deep venous thrombosis, Elevated cholesterol, Hypertension. * Surgical History: t onsillectomy , D&C , eye lid repair , hip replacement right 03/22/25. * Family History: F ather: . M other: . P aternal aunt: , The patients mother's sister from complications of the disease in her 80's,. The patient does have a history of colon cancer with first cousins on her father\'s side being diagnosed at age 66. * Social History: T obacco Use: T obacco Use/Smoking A re you a: nonsmoker. D rugs/Alcohol: A lcohol Screen P oints: 1, Interpretation: Negative. M iscellaneous: M arital status: . Occupation: retired. * Medications: T aking Vitamin D-3 25 MCG (1000 UT) Capsule 1 capsule Orally Once a day , Taking Iron 325 (65 Fe) MG Tablet 1 tablet Orally Three times a Week , Taking Latanoprost 0.005 % Solution 1 drop into affected eye in the evening Ophthalmic Once a day , Taking Famotidine 20 MG Tablet 1 tablet at bedtime as needed Orally Once a day , Taking Lisinopril 5 MG Tablet 1 tablet Orally Once a day , Taking FLUoxetine HCl 10 MG Tablet 1 tablet Orally Once a day , Taking Atorvastatin Calcium 40 MG Tablet 1 tablet Orally Once a day , Taking Aspirin 81 MG Capsule 1 capsule Orally Once a day , Discontinued Colyte with Flavor Packs 240 GM Solution Reconstituted As directed Orally Over the specified time. , Medication List reviewed and reconciled with the patient * Allergies: N .K.D.A. Objective: * Vitals: W t:146.8lbs, Ht: 63 in, BMI: 26 Index, BP:001/01mm Hg, Temp:97.1, Wt-k.59. Assessment: * Assessment: 1. A nemia - D64.9 (Primary) Plan: * Treatment: * Preventive Medicine: Counseling: C are goal follow-up plan: A jessika Normal BMI Follow-up D ietary management education, guidance, and counseling, B TN management provided Ivory freitas. Urinary Incontinence: U rinary Incontinence A ssessment: P resent, P clara of care documented: Y es, T ype of plan of care: B ladder training. Screenings: F all Risk Screening F all Risk Assessment: N o falls in the past year, S creening: N o falls in the past year, A ssessment: N ot performed, no reason specified, P clara of Care: N ot documented, no reason specified. * * The named appointment provid er may or may not be the originator of this progress note, and it is not deemed complete until electronically signed by the appointment provider. Sign off status: Pending * Provider: Jose Mni MD Date: 04/27/2025 Generated for Juliano santiago/Giacomo/Rodríguez on: 05/07/2025 06:19 PM EDT
--- OUTSIDE RECORDS SUMMARY | 2025-05-07 18:19 | XMS_ITS | Patient Health Record ---
Author Organization [facility] [place] Address [address] [place] [address] Care Team Providers Care Diffusion Operator Name Role Phone Festus Phillips MD Primary Care Provider Esme Enriquez Unavailable [phone] Allergies No Known Allergies Reason For Referral [...] Status Risk Notes Problem Acquired hallux valgus (88404884) Hallux valgus (acquired), left foot (M20.12) Active confirmed Problem Acquired hammer toe of left foot (4153336659382 103) Other hammer toe(s) (acquired), left foot (M20.42) Active confirmed Problem Acquired hallux valgus (97652183) Hallux valgus (acquired), left foot (M20.12) Active confirmed Plan Of Treatment Pending Test Test Name Order Date X ray : Foot, left 3V 04/10/2018 [id number] NAIL, 6 OR MORE 06/25/2018 [id number] NAIL, 6 OR MORE 04/10/2018 Insurance Providers Payer Name Payer Address Payer Phone Subscriber Number Group Number Insured Name Patient Relationship to Insured Coverage Start Date Coverage End Date BlueCare 65 Medicare Preferred [address] [place] [address] [id number] Kim Dhaliwal Self - patient is the insured Medical (General) History Medical History History ICD Code Anxiety Cholesterol High blood pressure Sciatica Measles Mumps Chicken pox DVT, thrombophlebitis Surgical History Surgery Date(Month/Year) right hip replacement 03/22/2023 Hospitalization History Reason Date(Month/Year) [facility] - right hip replacement 03/22/2023
--- OUTSIDE RECORDS SUMMARY | 2025-05-07 18:19 | XMS_ITS | Patient Health Record ---
Author Organization [facility] Address [address] [place] [address] Care Team Providers Care Sap Bw Developer Name Role Phone LORRAINE BONE M.D. Primary Care Provider Carlos Kelly Jr Unavailable Allergies No Known Allergies Results Component Value Reference Range Notes OBSX3 Reviewed date:05/05/2025 03:13:27 PM Interpretation: Performing Lab:[facility], [address] [place] [phone] Notes/Report: OBS1 POSITIVE NEGATIVE OBS Date 1 04/28/25 OBS2 POSITIVE NEGATIVE OBS Date 2 04/29/25 OBS3 POSITIVE NEGATIVE OBS Date 3 05/01/25 Reason For Referral No Information Medications Medication SIG (Take, Route, Frequency, Duration) Notes Start Date End Date Status Lisinopril 5 MG 1 tablet Orally Once a day Active FLUoxetine HCl 10 MG 1 tablet Orally Onc e a day Active Latanoprost 0.005 % 1 drop into affected eye in the evening Ophthalmic Once a day Active Famotidine 20 MG 1 tablet at bedtime as needed Orally Once a day Active Vitamin D-3 25 MCG (1000 UT) 1 capsule Orally Once a day Active Iron 325 (65 Fe) MG 1 tablet Orally Thre e times a Week Active Atorvastatin Calcium 40 MG 1 tablet Oral ly Once a day for 30 day(s) Active Aspirin 81 MG 1 capsule Orally Onc e a day for 30 days Active Immunizations Vaccine Route Administration Date Status Comme nts Influenza Unknown 04/27/2025 Administered Influenza Unknown 08/15/2018 Refused Problems Problem Type SNOMED Code ICD Code Onset Dates Problem Status W/U Status Risk Notes Problem Screening for malignant neoplasm of colon (568553791) Special screening for malignant neoplasms, colon (V76.51) Active confirmed Problem Long-term current use of aspirin (961872248532462) Aspirin long-term use (V58.66) Active confirmed Problem 946978402 Colon cancer screening (Z12.11) Active confirmed Problem 53783917 Encounter for other preprocedural examination (Z01.818) Active confirmed Problem 096738003869983 [facility] (current) use of aspirin (Z79.82) Active confirmed Problem Anemia (256975302) Anemia (D64.9) Active confir med Vital Signs Temperature 97.1 degrees Fahrenheit 04/27/2025 Blood pressure diastolic 01 mm Hg 04/27/2025 Height 63 in 04/27/2025 Blood pressure systolic 001 mm Hg 04/27/2025 Weight 146.8 lbs 04/27/2025 BMI 26 kg/m2 04/27/2025 Encounters Encounter Location Date Provider Diagnosis [facility] [address] [place] [address] [place] [address] 04/27/2025 Carlos Min Jr Anemia D64.9 [facility] [address] [place] [address] [place] [phone] 05/05/2025 Carlos Min Jr Assessments Encounter Date Diagnosis (ICD Code) Assessment Notes Treatment Notes Treatment Clinical Notes Section Notes 04/27/2025 Anemia (ICD-10 - D64.9) Plan Of Treatment Pending Test Test Name Order Date OCCULT BLOOD STOOL X3 (OBS) 04/27/2025 Future Test Test Name Order Date COLONOSCOPY 08/15/2018 Next Appt Details Provider Name:Carlos waddell Jr, 05/15/2025 12:40:00 PM, [address] [place] [address], [id number], Provider Name:Carlos waddell Jr, 04/29/2026 01:15:00 PM, [address] [place] [address], [place] [address], [place], [address], Insurance Providers Payer Name Payer Address Payer Phone Subscriber Number Group Number Insured Name Patient Relationship to Insured Coverage Start Date Coverage End Date [facility] [address] [place], [place] [id number] [phone] [id number] KI, JAG Self - patient is the insured Medical (General) History Medical History History ICD Code colonoscopy 03-12-2002 colon polyps hx of deep venous thrombosis elevated cholesterol hypertension Surgical History Surgery Date(Month/Year) hip replacement right 03/22/25 eye lid repair D&C tonsillectomy
[2025-05-13 13:50] VITALS: BMI 26.0
--- NOTE | 2025-05-13 15:05 | HO.ANESPROP2 ---
Documented by User: Zuleyma Randall NP 05/13/25 15:05 HPI - Anesthesia Eval Consult details Narrative: 85yo F for Upper Endoscopy and Colonoscopy PMFSH Active Problems Active Problems: All Active Problems Change in stool (Acute) Change in bowel movement (Acute) GERD (gastroesophageal reflux disease) (Acute) Hyperlipidemia (Acute) Hypertension (Acute) Encounter to establish care (Acute) Past Medical History Medical History DVT (deep venous thrombosis) Anxiety Depression Hyperlipidemia GERD (gastroesophageal reflux disease) Family History Family History Mother No problems noted. Father No problems noted. Surgical History Surgical History Hx of eye surgery History of total right hip replacement Hx of dilation and curettage Hx of tonsillectomy History of colonoscopy (~11/15/18) Social History Social History Housing: House Patient Tobacco Use Status: Never used Tobacco e-Cigarette/Vaping Use: Never Used Use of substances other than those prescribed or required for medical reasons: No Advance Directives: No Advance Directives Information Provided: Yes service: No Current occupational status: retired Cognitive needs: No Hearing needs: No Vision needs: Yes (rx glasses) Meds Allergies Allergy/AdvReac Type Severity Reaction Status Date / Time No Known Allergies Allergy Mild NKA Verified 04/16/25 14:29 Home Medications ?Medication ?Instructions ?Recorded ?Confirmed ?Last Taken ?Type atorvastatin 40 mg tablet 40 mg PO DAILY 01/16/25 05/13/25 Unknown History aspirin 81 mg tablet 81 mg PO DAILY 04/16/25 05/13/25 Unknown History cholecalciferol (vitamin D3) 50 50 mcg PO DAILY 04/16/25 05/13/25 Unknown History mcg (2,000 unit) capsule ferrous sulfate 325 mg (65 mg 325 mg PO DAILY 04/16/25 05/13/25 Unknown History iron) tablet latanoprost 0.005 % eye drops 1 drp ophthalmic (eye) DAILY 04/16/25 05/13/25 Unknown History Exam Height,Weight and Vital Signs: Height 5 ft 3 in Weight 66.587 kg Assessment and Plan Assessment Anesthesia Assessment: Chart Reviewed Documented by User: Annelise Munoz MD 05/15/25 12:04 PMFSH Past Medical History Medical History DVT (deep venous thrombosis) Anxiety Depression Hyperlipidemia GERD (gastroesophageal reflux disease) Family History Family History Mother No problems noted. Father No problems noted. Surgical History Surgical History Hx of eye surgery History of total right hip replacement Hx of dilation and curettage Hx of tonsillectomy History of colonoscopy (~11/15/18) History of Problems with Anesthesia: No Social History Social History Housing: House Patient Tobacco Use Status: Never used Tobacco e-Cigarette/Vaping Use: Never Used Use of substances other than those prescribed or required for medical reasons: No Advance Directives: No Advance Directives Information Provided: Yes service: No Current occupational status: retired Cognitive needs: No Hearing needs: No Vision needs: Yes (rx glasses) Meds Allergies Allergy/AdvReac Type Severity Reaction Status Date / Time No Known Allergies Allergy Mild NKA Verified 04/16/25 14:29 Home Medications ?Medication ?Instructions ?Recorded ?Confirmed ?Last Taken ?Type atorvastatin 40 mg tablet 40 mg PO DAILY 01/16/25 05/13/25 Unknown History aspirin 81 mg tablet 81 mg PO DAILY 04/16/25 05/13/25 Unknown History cholecalciferol (vitamin D3) 50 50 mcg PO DAILY 04/16/25 05/13/25 Unknown History mcg (2,000 unit) capsule ferrous sulfate 325 mg (65 mg 325 mg PO DAILY 04/16/25 05/13/25 Unknown History iron) tablet latanoprost 0.005 % eye drops 1 drp ophthalmic (eye) DAILY 04/16/25 05/13/25 Unknown History Exam Airway Mallampati Class: II TM Dist: >3cm Neck ROM: Full Loose/Missing/Broken Teeth: No Heart: RRR Lungs: CTA Assessment and Plan Assessment Anesthesia Assessment: Anesthesia Plan Discussed Final Anesthetic Review History of Problems with Anesthesia: No NPO: Yes ASA Class: II Final Preanesthetic Review: Meds/Allgs Chart Reviewed, Consent Obtained/Reviewed and Anes Risks/Benef Reviewed Patient Risk: Low Procedure Risk: Intermediate Anesthetic Plan Anesthetic Plan: MAC: Disposition: Standard PACU
[2025-05-15 11:21] VITALS: BMI 25.0
[2025-05-15] MEDS: Lactated Ringers 1,000 ML 100 ML IVCONT (11:41)
[2025-05-15 11:42] VITALS: BP 135/50; PULSE 67; RESP 16; TEMP 36.8; O2SAT 100
--- NOTE | 2025-05-15 12:42 | MHC.SHP ---
Pre-Procedural Eval Section A - 24 Hr Update-Section A only Date of Service: 05/15/25 The patient is an INPATIENT: No Changes since office visit: No Cold of Flu in the past 2 weeks, No New Medical Problems, No Changes in Medication and No Patient answered all questions The patient has been examined within 24 hours of the surgical procedure. The History & Physical has been completed within 30 days and I have reviewed it.: Yes Section B - Complete if H&P > 30 days Chief Complaint: Other fecal abnormalities Allergies: Allergies Allergy/AdvReac Type Severity Reaction Status Date / Time No Known Allergies Allergy Mild NKA Verified 04/16/25 14:29 Plan I have reviewed the history and physical and performed a pertinent physical examination on my patient. No changes have occurred unless specified. Time Spent With Patient Time: Total time managing care of this patient today ____ minutes.
[2025-05-15 13:39] VITALS: BP 102/42; PULSE 86; RESP 16; TEMP 36.5; O2SAT 99
[2025-05-15 13:45] VITALS: BP 108/49; PULSE 86; RESP 16; O2SAT 99
[2025-05-15 14:00] VITALS: BP 115/50; PULSE 82; RESP 16; TEMP 36.2; O2SAT 97
--- NOTE | 2025-05-16 00:46 | OP_ITS ---
DATE OF SERVICE: 05/15/2025 SURGEON: Carlos Min MD INDICATIONS: Abnormal findings in stool. PREOPERATIVE DIAGNOSIS: POSTOPERATIVE DIAGNOSIS: PROCEDURE PERFORMED: Upper endoscopy with biopsy, colonoscopy to the hepatic flexure with biopsy. ESTIMATED BLOOD LOSS: COMPLICATIONS: ANESTHESIA: Monitored anesthesia care. ASSISTANTS: SPECIMENS: DESCRIPTION OF PROCEDURE: A history and physical performed. The risks and benefits of the procedure were explained to the patient. Informed consent was obtained. The patient was placed in the left lateral decubitus position. The Olympus video gastroscope was introduced into the esophagus, stomach, and duodenum. Examination was performed. The scope was removed. She was repositioned for colonoscopy. A digital rectal exam was performed and was found to be normal. The Olympus pediatric video colonoscope was introduced into the rectum. The scope was advanced to the level of the hepatic flexure, but could not be advanced any further due to redundant colon. Examination was performed. The scope was removed. She tolerated the procedure well, was returned to recovery in stable condition. FINDINGS: Upper endoscopy: 1. Esophagus: There was distal esophagitis extending over the last 3-4 cm of the esophagus with erosion and ulceration. There was a large hiatal hernia. Biopsies were obtained from the antrum and from the distal esophagus. 2. Stomach: The stomach was otherwise normal. 3. Duodenum: The bulb and 2nd portion were normal. Colonoscopy: The scope could not be advanced to the cecum due to the redundant nature of the colon. It was estimated that approximately 75% of the colon was examined. There was a large ulcerated circumferential sigmoid mass between 18 and 23 cm that was friable and bled easily with instrumentation. The mass had the appearance of a cancer. Multiple biopsies were obtained from the sigmoid mass. The scope was able to be passed through this to reach the remaining portions of the colon that were examined. No other polyps were identified. Retroflexed examination showed some internal hemorrhoids. IMPRESSION: 1. Erosive esophagitis. 2. Hiatal hernia. 3. Sigmoid mass. RECOMMENDATIONS: 1. Follow up the biopsy results. 2. Begin proton pump inhibitor for treatment of erosive esophagitis. MD FANTA Squires/HUNG / [id number]
== END 2025-05-15 14:25 | disposition home or self-care (01) ==
PROVIDERS: PCP Student in an Organized Health Care Education/Training Program; Visit Provider Internal Medicine Gastroenterology
PROC: (CPT 45380; principal; 2025-05-15 12:40)
DX: R19.5 Other fecal abnormalities (principal); K22.10 Ulcer of esophagus without bleeding; K44.9 Diaphragmatic hernia without obstruction or gangrene; Z86.0101 Personal history of adenomatous and serrated colon polyps; Z80.0 Family history of malignant neoplasm of digestive organs; C18.7 Malignant neoplasm of sigmoid colon
CPT/HCPCS: 45380; 43239; 88305; 88313; 88342; 88360; J2003; J2704; J3010

== ENCOUNTER 2025-05-20 09:25 | Outpatient (REF) | payer MEDICARE, SELFPAY ==
[2025-05-20 11:03] LABS: Blood Urea Nitrogen 11 mg/dL (9-16); Estimated Glomerular Filt Rate > 60
[2025-05-20 11:19] LABS: Carcinoembryonic Antigen 7.50 ng/mL
== END 2025-05-20 09:26 | disposition home or self-care (01) ==
LOC: HO.10HDL 09:25
PROVIDERS: Visit Provider Internal Medicine Gastroenterology
DX: C18.9 Malignant neoplasm of colon, unspecified (principal)
CPT/HCPCS: 36415; 82378; 82565; 84520